=== PATIENT | female | born 1960 | race Caucasian/White ===

== ENCOUNTER 2022-08-31 05:56 | Observation (INO) ==
--- NOTE | 2022-08-22 15:27 | Anesthesiology Consultation ---
Date of Service August 22, 2022 Assessment & Plan (1) Encounter for pre-operative examination: Chart Review Chart Review: Acceptable Risk for Surgery and Patient NOT seen in Pre Admission Testing COVID screening: Per PAT nursing assessment on 08/22/22, No known COVID-19 positive contacts or current COVID-19 related symptoms. Travel screen negative. Patient NOT vaccinated for Covid. At surgeon discretion if preop Covid testing being done. History Surgery Operation Date: 08/31/22 07:30 Proposed Procedures p Bilateral Breast Reduction - Ruba Montgomery MD Height/Weight Height: 5 ft 2 in Weight: 104.326 kg Allergies Allergy/AdvReac Type Severity Reaction Status Date / Time NSAIDS (Non-Steroidal Allergy Severe Hypertensio Verified 08/22/22 14:32 Anti-Inflamma n penicillin G Allergy Unknown Unknown Verified 08/22/22 14:32 Medications Home Medications Medication Instructions Recorded Confirmed Last Taken amlodipine 5 mg tablet 5 mg PO QAM 08/17/22 08/22/22 Unknown aspirin 81 mg tablet,delayed 81 mg PO HS 08/17/22 08/22/22 Unknown release (Adult Low Dose Aspirin) multivitamin 1 tab PO DAILY 08/17/22 08/22/22 Unknown omega 6-iqb-kvn-fish oil 300 1 cap PO BID 08/17/22 08/22/22 Unknown mg-1,000 mg capsule,delayed release (Fish Oil) clindamycin HCl 300 mg capsule 300 mg PO TID 7 days #21 caps 08/18/22 08/22/22 Unknown oxycodone-acetaminophen 5 mg-325 1 tab PO Q4H PRN pain 3 days #18 08/18/22 08/22/22 Unknown mg tablet (Percocet) tabs atorvastatin 10 mg tablet 10 mg PO DAILY 08/22/22 08/22/22 Unknown docusate sodium 100 mg capsule 100 mg PO BID 08/22/22 08/22/22 Unknown (Colace) levothyroxine 75 mcg tablet 75 mcg PO QAM 08/22/22 08/22/22 Unknown ropinirole 0.25 mg tablet 0.25 mg PO HS 08/22/22 08/22/22 Unknown Past Medical History Medical History (Updated 08/22/22 @ 15:26 by Aura Douglas PA-C) Chronic back pain History of COVID-19 2020: not hospitalized . all sx resolved Hyperlipidemia Hypertension Hypothyroidism Macromastia Morbid obesity Sleep apnea no device Past Family History Family History Mother Myocardial infarction Father Diabetes Hypertension Cancer Grandmother (Maternal) Diabetes Grandfather (Maternal) Colorectal cancer Past Surgical History Surgical History H/O section x 2 H/O: hysterectomy History of colonoscopy History of endometrial ablation History of tooth extraction Social History Smoking Status: Former smoker Do You Dip or Chew Tobacco: No Smoking End Date: 30 yrs ago Hx Alcohol Use: No Hx Substance Use: No substance use type: does not use Lab Results Anesthesia Preop Results Results Anesthesia Widget: WBC 6.12 K/ul (4.8-10.8) 08/18/22 Hgb 13.9 g/dl (12.0-16.0) 08/18/22 Hct 41.3 % (37.0-47.0) 08/18/22 Plt 310 K/uL (130-400) 08/18/22 Na 139 mmol/L (136-145) 08/18/22 K 3.9 mmol/L (3.5-5.1) 08/18/22 Cl 105 mmol/L (98-107) 08/18/22 CO2 30 mmol/L (21-32) 08/18/22 BUN 21 mg/dl (6-23) 08/18/22 Creat 0.58 mg/dl (0.6-1.2) L 08/18/22 Glucose Level 109 mg/dl (70-99(Fasting)) H 08/18/22 PT 10.7 Seconds (9.0-12.0) 08/18/22 INR 1.0 (0.9-1.1) 08/18/22 Testing Electrocardiogram Date: 08/18/22 Findings: + NSR @ (86bpm) NS TWA
[2022-08-31] MEDS ORDERED: CLINDA 900 MG **Premixed Bag IV SCH (06:00)
[2022-08-31] MEDS ORDERED: LACTATED RINGER'S 1,000 ML IV SCH (06:00)
--- NOTE | 2022-08-31 06:48 | History & Physical Bridge Note ---
Date of Service August 31, 2022 History & Physical Bridge Note I have examined the patient, reviewed the History & Physical and in the interval since the performance of the History & Physical I have noted the following changes of clinical significance: no changes noted
[2022-08-31] MEDS ORDERED: BUPIVACAINE 0.25% PF 30 ML VIAL ONE (07:15)
[2022-08-31] MEDS ORDERED: LIDOCAINE 1%/EPINEPHRINE 1:100,000 20 ML VIAL ONE (07:15)
[2022-08-31] MEDS ORDERED: MIDAZOLAM HCL 1 MG/ML 2ML VIAL ONE (07:16)
[2022-08-31] MEDS ORDERED: fentaNYL citrate PF 100 MCG/2 ML VIAL ONE ×3 (07:16→11:21)
[2022-08-31] MEDS ORDERED: ONDANSETRON INJ 2 MG/ML 2 ML VIAL IV PRN ×2 (07:23→12:51)
[2022-08-31] MEDS ORDERED: PROMETHAZINE HCL 6.25 MG in SODIUM CHLORIDE 0.9% 50 ML IV PRN (07:23)
[2022-08-31] MEDS ORDERED: ATROPINE SULFATE 0.1 MG/ML 10ML SYR IV PRN (07:23)
[2022-08-31] MEDS ORDERED: ePHEDrine sulfate 50 MG/ML AMP IV PRN (07:23)
[2022-08-31] MEDS ORDERED: DEXAMETHASONE SOD INJ 4 MG/ML VIAL ONE (08:05)
[2022-08-31] MEDS ORDERED: ePHEDrine sulfate 50 MG/ML AMP ONE (08:05)
[2022-08-31] MEDS ORDERED: ROCURONIUM BROMIDE 10 MG/ML 5 ML VIAL IV ONE ×8 (08:05→10:14)
[2022-08-31] MEDS ORDERED: LIDOCAINE 2% 2 ML VIAL/AMP(20MG/ML) INFIL ONE (08:05)
[2022-08-31] MEDS ORDERED: PROPOFOL IV EMULSION 10 MG/ML 20 ML VIAL IV ONE ×2 (08:05→09:16)
[2022-08-31] MEDS ORDERED: HYDROmorphone INJ 2 MG/ML SYR/VIAL ONE (08:06)
[2022-08-31] MEDS ORDERED: TISSEEL FIBRIN SEALANT 4ML TOP ONE (08:47)
[2022-08-31] MEDS ORDERED: PHENYLEPHRINE 100MCG/ML 5ML SYR ONE (08:48)
[2022-08-31] MEDS ORDERED: ONDANSETRON INJ 2 MG/ML 2 ML VIAL ONE (11:03)
[2022-08-31] MEDS ORDERED: SUGAMMADEX SODIUM 200 MG/2 ML VIAL IV ONE (11:10)
--- NOTE | 2022-08-31 11:12 | Post Operative Brief Note ---
PG Immediate Post Op with CF Date of Surgery August 31, 2022 Pre & Post Diagnosis Operation Date: 08/31/22 07:30 Pre-Op Diagnosis: Macromastia Post-Op Diagnosis: Macromastia I identified the patient and participated in the time-out.: Yes Procedure Operation Date: 08/31/22 07:30 Actual Procedures p Bilateral Breast Reduction with Free Nipple Graft(Bilateral) - Ruba Montgomery MD Surgeon Ruba Montgomery MD Drill Press Operator Numerical Control Deisy Stanford MD, Madison Siegel PA-C Estimated Blood Loss 75 Findings Consistent with Post-Op Diagnosis Specimens Specimen Description: A. left breast tissue, 1172g sent 0910 B. right breast tissue ,1046g sent 1035 Drains Wisam-Urena Drain
[2022-08-31] MEDS: fentaNYL citrate PF 100 MCG/2 ML VIAL IV PRN ×4 (11:35→12:11)
--- NOTE | 2022-08-31 11:58 | Operative Report ---
PG Post Operative Report Pre & Post Diagnosis Operation Date: 08/31/22 07:30 Pre-Op Diagnosis: Macromastia Post-Op Diagnosis: Macromastia I identified the patient and participated in the time-out.: Yes Procedure Operation Date: 08/31/22 07:30 Actual Procedures p Bilateral Breast Reduction with Free Nipple Graft(Bilateral) - Ruba Montgomery MD Surgeon Ruba Montgomery MD Rubber Process Hand Deisy Stanford MD, Madison Siegel PA-C Estimated Blood Loss 75 Findings Consistent with Post-Op Diagnosis Specimens left breast 1172 grams, right breast 1046 grams Drains [id number] Anesthesia Type General Complications none Indications back, neck and bilateral shoulder pain with intertrigo Description of Procedure The risks, benefits and alternatives of the procedure were explained to the patient who agreed and signed consent. She was identified and marked in the preoperative holding area. She was brought to the operating room where she was positioned supine and placed under general anesthesia without incident. Surgical site markings were again reassessed. I began with the left breast. 1% lidocaine with epinephrine was used to anesthetize the planned incisions as well as the nipple areolar complex. A breast tourniquet was applied using the Gudelia clamp and lap sponge. A 42 mm cookie cutter was used to circumscribe the nipple-areolar complex. The nipple-areolar complex was then removed as a full thickness graft and placed on the back table in saline soaked sponge. At this point, tourniquet was released and the inframammary fold incision was made using 15 blade scalpel. Electrocautery was used to deepen the incision through subcutaneous fat and breast parenchyma down to chest wall. Care was taken to perform this in a bevelled direction ligating vessels as needed and achieving hemostasis with electrocautery. Once the breast was mostly undermined, the superior incision was then made to the inferior aspect of the keyhole incision. This was performed using a 15 blade scalpel. Incision was then deepened using electrocautery again full thickness through the breast. A similar incision was made laterally. Centrally, the skin was incised using electrocautery and additional breast parenchyma was resected again in a beveled fashion in order to retain some projection of the breast. Tissue was passed off for weighing. Additional resection was performed until we achieved the desired size and the wound was able to be closed with minimal tension. Total resection weight on the left was 1172 grams. Hemostasis was achieved with electrocautery 0.25% Marcaine plain was used to anesthetize the incisions as well as pectoralis fascia. A 15 [place] Josh drain was brought out through a separate stab incision laterally toward the axilla. The keyhole was then incised using 15 blade scalpel and deepithelialized. T-junction was brought together using 2-0 Vicryl suture. Closure was begun first lateral to medial using 2-0 Vicryl deep dermal sutures and then medial to lateral using 2-0 Vicryl deep dermal sutures. Vertical limb was closed using a combination of 2-0 Vicryl deep dermal sutures and a 3-0 PDS interrupted dermal sutures. The inframammary fold incision was closed using 2-0 PDO deep dermal running Quill suture. The vertical limb was then closed using 3-0 Monocryl running subcuticular suture. Nipple areolar complex was inspected and thinned using a curved iris scissor. It was placed in the recipient bed and sutured into place using 4-0 silk tie over bolster sutures and 4-0 chromic interrupted sutures. A similar procedure was undertaken on the right side. Total resection weight was 1046 grams on the right. There was reasonable symmetry at the close of the case. No complications. Dermabond Prineo was applied to the incisions. Dry dressing followed by a surgical bra were placed. The patient was awakened and transferred to the recovery room in satisfactory condition. Deisy Smtih and Madison Siegel PA-C were present and scrubbed during the procedure. I attest to the content of the Intraoperative Record and any orders documented therein. Any exceptions are noted below.
[2022-08-31] MEDS ORDERED: ACETAMINOPHEN 325 MG TAB PO PRN (12:51)
[2022-08-31] MEDS ORDERED: PROMETHAZINE HCL 12.5 MG in SODIUM CHLORIDE 0.9% 50 ML IV PRN (12:51)
[2022-08-31] MEDS ORDERED: MoRPHine SULFATE 2 MG/ML CARP IV PRN (12:51)
[2022-08-31] MEDS ORDERED: oxyCODONE/ACETAMINOPHEN 5mg/325mg TAB PO PRN (12:51)
[2022-08-31] MEDS ORDERED: LORazepam 0.5 MG TAB PO PRN (12:51)
[2022-08-31] MEDS ORDERED: diphenhydrAMINE Capsule 25 MG CAP PO PRN (12:51)
[2022-08-31] MEDS ORDERED: diphenhydrAMINE 50 MG/ML VIAL IV PRN (12:51)
[2022-08-31] MEDS: MoRPHine SULFATE 4 MG/ML 1 ML CARP\\VIAL IV PRN ×3 (13:09→22:53)
[2022-08-31] MEDS: D5W AND 1/2NSS + 20MEQ KCL 20 MEQ/1,000 ML BAG IV SCH (13:36)
--- NOTE | 2022-08-31 14:21 | Anesthesiology Progress Note ---
Date of Service August 31, 2022 Anesthesia Post Procedure Vital Signs Vital Signs: Temp Pulse Resp BP Pulse Ox O2 Del Method O2 Flow Rate 08/31/22 13:38 37.2 C 101 H 15 117/78 95 Nasal Cannula 2 08/31/22 13:13 37.2 C 93 H 16 123/79 99 Nasal Cannula 2 08/31/22 12:39 36.6 C 92 H 16 132/83 100 Room Air 2 08/31/22 12:25 36.6 C 83 12 136/83 98 Nasal Cannula 2 08/31/22 12:15 85 13 132/86 100 Nasal Cannula 2 08/31/22 12:05 90 14 150/89 H 99 Nasal Cannula 2 08/31/22 11:55 87 15 145/85 H 99 Nasal Cannula 2 08/31/22 11:45 89 12 138/85 97 Nasal Cannula 2 08/31/22 11:35 102 H 18 147/76 H 97 Nasal Cannula 4 08/31/22 11:26 36 C L 105 H 13 115/66 97 Nasal Cannula 4 08/31/22 06:24 37.1 C 86 18 177/101 H 99 Room Air Pain Intensity Left Lower Back: Pain Intensity: 2 Bilateral Breast: Pain Intensity: 8 Transfer of Care Handoff Completed per policy Notes Mental Status: alert / awake / arousable Patient Amnestic to Procedure: Yes Nausea / Vomiting: adequately controlled Pain: adequately controlled Airway Patency, RR, SpO2: stable & adequate BP & HR: stable & adequate Hydration State: stable & adequate Anesthetic Complications: no major complications apparent
[2022-08-31] MEDS: CLINDAMYCIN/D5W 300 MG/50 ML BAG IV SCH ×2 (15:28→22:49)
[2022-08-31] MEDS: DOCUSATE SODIUM 100 MG CAP PO SCH (20:52)
[2022-08-31] MEDS ORDERED: rOPINIRole HCL 0.25 MG TABLET PO SCH (21:00)
[2022-09-01] MEDS: oxyCODONE/ACETAMINOPHEN 5mg/325mg TAB PO PRN ×2 (02:55→08:58)
[2022-09-01] MEDS: D5W AND 1/2NSS + 20MEQ KCL 20 MEQ/1,000 ML BAG IV SCH (02:56)
[2022-09-01] MEDS: CLINDAMYCIN/D5W 300 MG/50 ML BAG IV SCH (06:36)
--- NOTE | 2022-09-01 08:27 | Surgery Progress Note ---
Date of Service September 01, 2022 Assessment & Plan (1) S/P reduction mammoplasty: Plan: Drains removed. D/C home today, office followup tomorrow. Admission and Anticipated Discharge Date Admission Date: August 31, 2022 Ihsan Robbins is resting comfortably in bed. Her pain is controlled. She is ambulating and tolerating regular diet. Physical Exam Physical Exam: drains with scant serous output- removed. bolsters intact. no saturation on gau ze dressings Results & Data Vital Signs (Past 12 Hours) Vital Signs Temp Pulse Resp BP Pulse Ox O2 Del Method 09/01/22 07:31 37.0 C 78 18 117/71 96 Room Air 09/01/22 04:06 36.9 C 76 18 101/67 98 Room Air 08/31/22 22:55 37 C 89 18 106/68 96 Room Air PG Care Time/CCT Total # of Minutes Spent Total Time Spent with Patient: Total time spent is greater than 50% in coordination of care (as documented) at patient's floor/unit and/or counseling patient: Coding Level of Care Code 95660 Post Operative Follow-Up Diagnoses S/P reduction mammoplasty Z98.890
[2022-09-01] MEDS ORDERED: LEVOTHYROXINE SODIUM 75 MCG TABLET PO SCH (09:00)
[2022-09-01] MEDS ORDERED: MULTIVITAMIN TAB PO SCH (09:00)
[2022-09-01] MEDS ORDERED: ATORVASTATIN 10 MG TAB PO SCH (09:00)
[2022-09-01] MEDS ORDERED: amLODIPine BESYLATE 5 MG TAB PO SCH (09:00)
[2022-09-01] MEDS: DOCUSATE SODIUM 100 MG CAP PO SCH (09:01)
--- NOTE | 2022-09-01 15:25 | Discharge Summary ---
Date of Service September 01, 2022 Admission HPI Per Admitting Provider See admission H&P Admission Exam Per Admitting Provider macromastia Principal Diagnosis Symptomatic Macromastia Discharge Exam drains with scant serous output- removed. bolsters intact. no saturation on gauze dressings Discharge Data Allergies Allergy/AdvReac Type Severity Reaction Status Date / Time NSAIDS (Non-Steroidal Allergy Severe Hypertensio Verified 08/31/22 06:13 Anti-Inflamma n penicillin G Allergy Unknown Unknown Verified 08/31/22 06:13 Procedures Performed Operation Date: 08/31/22 07:30 Actual Procedures p Bilateral Breast Reduction with Free Nipple Graft(Bilateral) - Ruba Montgomery MD Hospital Course (1) S/P reduction mammoplasty: Patient presented to [facility] with history of symptomatic macromastia. She was taken to the OR and underwent bilateral breast reduction. There were no intraoperative complications. She was taken to recovery and transferred to med/surg for observation. On POD#1, she was feeling well. She was tolerating a regular diet and ambulating. On exam, her vitals were stable. Her incisions were CDI and nipples bolsters intact. Her drains were removed. She was discharged home with instructions to follow-up in the office in one day. Total Time Total Time Spent Total Time Spent (In Minutes): 20 Total Time Includes: Examination of the Patient, Discharge Planning, Medication Reconciliation and Communication With Other Providers Discharge Plan Discharge Items Patient Disposition: Home - Self-Care Reason For Visit: Macromastia Discharge Diagnosis: s/p bilateral breast reduction Activity: As commented below Non-emergency contact: Surgeon Call non-emergency contact if: you have any medication questions, you have a fever and your wound has increased redness Follow-up/Referrals: Madison Siegel PA-C [Physician [employer] Specialist] - 09/02/22 10:00 am Ruba Rico PA-C [Primary Care Provider] - Diet: Regular Addtl Attending Provider Instructions: ACTIVITY RECOMMENDATIONS: __Normal activities _x_No bending, lifting or straining. Keep arms at shoulder height or below __No driving __Driving allowed when you are off pain medications _x_Walking permitted __You should have help at home for ___ days DRESSINGS: __No dressings required _x_Keep dressings dry/in place until first office visit __Remove dressings ___ and leave dressings off __Apply ice ___ days __Remove dressings and reapply garment __Apply antibiotic ointment (Bacitracin, Neosporin, etc) to wounds 3-4 times/day for 10 days BATHING: _x_Keep dressings dry _x_Sponge bathing permitted away from surgical dressings __Showering permitted _x_No swimming, hot tubs or soaking in a tub MEDICATIONS: Resume previous medications unless instructed otherwise by your surgeon. _x_Do not use aspirin, Motrin, Advil or Ibuprofen as these may promote bleeding. Please use Tylenol. _x_Prescription(s) provided: antibiotics and pain medication were prescribed at your last office visit. Begin antibiotics today OTHER INSTRUCTIONS: __Record drain output 2-3 times per day SPECIAL CARE INSTRUCTIONS: * It is normal to have a mild fever after surgery. If your temperature is higher than 101.5 degrees F, please call the office at [phone]. * Constipation is a typical side effect of pain medication. An [id number] stool softener will help relieve this. * Leaking around surgical drains may occur and should not cause concern. Sometimes these drains become clogged. If this happens, remove the bulb and milk the clot out of the tube, then replace the bulb. * Drainage from wounds after liposuction is normal and should be expected. Garments will become soiled. You should protect furniture and bedding. This drainage should mostly subside within 2-3 days. Leave garments in place unless instructed to remove them. * If you have unusual drainage from a wound or are concerned you have an infection or have any questions or concerns, please call the office at [phone]. FOLLOW UP VISIT: If not already scheduled, please call the office, , when you return home after surgery to schedule an appointment to be seen in _1__ days. Pending Studies at Discharge: Yes Studies:: pathology Stand-Alone Forms: My [facility] [employer], Pain - Opioid Pain Management, Smoking Cessation Medications and DC Order Prescriptions: Continued amlodipine 5 mg tablet 5 mg PO QAM multivitamin Tablet 1 tab PO DAILY Hold Instructions: surgery clindamycin HCl 300 mg capsule 300 mg PO TID 7 Days Qty: 21 0RF Rx Instructions: Please begin prescription when discharged home from surgery. oxycodone-acetaminophen [Percocet] 5-325 mg tablet 1 tab PO Q4H PRN (Reason: pain) 3 Days Qty: 18 0RF Rx Instructions: Initial therapy. docusate sodium [Colace] 100 mg Capsule 100 mg PO BID levothyroxine 75 mcg Tablet 75 mcg PO QAM atorvastatin 10 mg Tablet 10 mg PO DAILY ropinirole 0.25 mg Tablet 0.25 mg PO HS Rx Instructions: administer 1-3 hours before bedtime Tylenol Ex Str Rapid Release 500 mg PO DIRECTED Discontinued aspirin [Adult Low Dose Aspirin] 81 mg tablet,delayed release (DR/EC) 81 mg PO HS Hold Instructions: Surgery omega 9-dsy-xmp-fish oil [Fish Oil] 300-1,000 mg capsule,delayed release(DR/EC) 1 cap PO BID Hold Instructions: surgery Discharge Orders: Discharge Order (Routine); Ordered 09/01/22 Ordered By: Madison Siegel Admission Data Admit Date/Time: 08/31/22 11:27 Attending Provider: Ruba Montgomery Admit Provider: Ruba Montgomery Primary Care Provider: Ruba Rico Other Interventions: Discharge Summary Assessment (RN) Last Done: 09/01/22 09:19 Coding Level of Care Code 45277 OBS Care - Discharge Diagnoses S/P reduction mammoplasty Z98.890
== END 2022-09-01 09:52 | disposition home or self-care (01) ==
LOC: ASU 05:56 → 3N 05:56